=== PATIENT | female | born 1995 | race American Indian/Alaskan Native ===

== ENCOUNTER 2017-01-31 09:44 | Emergency (ER) | payer OTHER ==
[2017-01-31 10:15] VITALS: BP 104/69
[2017-01-31] MEDS ORDERED: ULTRAM PO ONE (11:15)
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
--- NOTE | 2017-01-31 12:28 | XRay Report ---
CERVICAL SPINE, 3 views: History: Neck pain. Findings: The vertebral bodies, disk spaces, posterior elements and prevertebral soft tissues are unremarkable. The dens is intact. No acute fracture or malalignment is identified. Impression: 1. No evidence for acute injury to the cervical spine.
== END 2017-01-31 12:46 | disposition home or self-care (01) ==
LOC: ED 09:44
DX: S16.1XXA Strain of muscle, fascia and tendon at neck level, initial encounter (principal); V89.2XXA Person injured in unspecified motor-vehicle accident, traffic, initial encounter; Y92.488 Other paved roadways as the place of occurrence of the external cause; Y93.89 Activity, other specified; Y99.8 Other external cause status
CPT/HCPCS: 72040; 99283

== ENCOUNTER 2017-08-14 20:44 | Emergency (ER) | payer SELFPAY | END 2017-08-14 22:40 | disposition left against medical advice (07) | LOC: ED 20:44 | DX: G43.909 Migraine, unspecified, not intractable, without status migrainosus (principal); Z53.21 Procedure and treatment not carried out due to patient leaving prior to being seen by health care provider ==

== ENCOUNTER 2017-12-21 18:02 | Emergency (ER) | payer MEDICAID, OTHER ==
[2017-12-21 18:25] VITALS: BP 110/69
== END 2017-12-22 00:50 | disposition left against medical advice (07) ==
LOC: ED 18:02
DX: R51 Headache (principal); R11.10 Vomiting, unspecified; R07.89 Other chest pain; Z53.21 Procedure and treatment not carried out due to patient leaving prior to being seen by health care provider

== ENCOUNTER 2019-01-12 03:18 | Emergency (ER) | payer MEDICAID ==
[2019-01-12] MEDS ORDERED: TYLENOL PO ONE (04:11)
[2019-01-12 04:51] LABS: Bilirubin,Urine NEG (Negative); Blood,Urine NEG (Negative); Color,Urine Yellow (Yellow); HCG Qualitative,Urine Negative (Negative); Mucus,Urine FEW /HPF; Urobilinogen,Urine < 2.0 mg/dL (<2.0)
--- NOTE | 2019-01-12 05:30 | Emergency Department Report ---
ED General Adult HPI - General Chief complaint: Headache Stated complaint: CHEST PAIN Time Seen by Provider: 01/12/19 04:04 Source: patient Mode of arrival: Ambulatory Limitations: No Limitations - History of Present Illness Initial comments: patient presents to er with headache, chest pain, not feeling well. patient states symptoms started 2 days ago. Patient lmp one month ago. no fever, chills or night sweats. Severity scale (0 -10): 10 - Related Data Previous Rx's Medication Instructions Recorded Last Taken Type Cyclobenzaprine [Flexeril] 10 mg PO TID PRN #15 tablet 09/20/16 Unknown Rx Naproxen [Naprosyn] 500 mg PO BID #20 tablet 09/20/16 Unknown Rx Cyclobenzaprine [Flexeril] 10 mg PO TID PRN #30 tablet 01/31/17 Unknown Rx Naproxen [Naprosyn TAB] 500 mg PO BID PRN #60 tablet 01/12/19 Unknown Rx Allergies Allergy/AdvReac Type Severity Reaction Status Date / Time No Known Allergies Allergy Unverified 09/20/16 14:07 ED Review of Systems ROS: Stated complaint: CHEST PAIN Other details as noted in HPI Comment: All other systems reviewed and negative Gastrointestinal: denies: nausea, vomiting Genitourinary: denies: urgency, dysuria Skin: denies: rash Neurological: headache. denies: weakness ED Past Medical Hx - Past Medical History Previous Medical History?: Yes Additional medical history: VAGINAL DLEIVERY X 1 - Surgical History Past Surgical History?: No - Social History Smoking Status: Never Smoker - Medications Home Medications: Home Medications Medication Instructions Recorded Confirmed Last Taken Type Cyclobenzaprine [Flexeril] 10 mg PO TID PRN #15 tablet 09/20/16 Unknown Rx Naproxen [Naprosyn] 500 mg PO BID #20 tablet 09/20/16 Unknown Rx Cyclobenzaprine [Flexeril] 10 mg PO TID PRN #30 tablet 01/31/17 Unknown Rx Naproxen [Naprosyn TAB] 500 mg PO BID PRN #60 tablet 01/12/19 Unknown Rx ED Physical Exam - General Limitations: No Limitations General appearance: alert, in no apparent distress - Head Head exam: Present: atraumatic, normocephalic - Eye Eye exam: Present: normal appearance Pupils: Present: normal accommodation - ENT ENT exam: Present: normal exam, normal orophraynx - Respiratory Respiratory exam: Present: normal lung sounds bilaterally - Cardiovascular Cardiovascular Exam: Present: regular rate, normal rhythm - GI/Abdominal GI/Abdominal exam: Present: soft, normal bowel sounds - Extremities Exam Extremities exam: Present: normal inspection - Back Exam Back exam: Present: normal inspection ED Course Vital Signs 01/12/19 01/12/19 01/12/19 03:27 04:10 04:25 Temperature 97.0 F L 99.9 F H Pulse Rate 111 H 90 Respiratory 22 22 18 Rate Blood Pressure 138/112 Blood Pressure 113/65 [Right] O2 Sat by Pulse 98 95 Oximetry Critical care attestation.: If time is entered above; I have spent that time in minutes in the direct care of this critically ill patient, excluding procedure time. ED Disposition Clinical Impression: Headache Qualifiers: Headache type: tension-type Headache chronicity pattern: acute headache Intractability: not intractable Qualified Code(s): G44.209 - Tension-type headache, unspecified, not intractable Chest pain Qualifiers: Chest pain type: other chest pain Qualified Code(s): R07.89 - Other chest pain; R07.8 - Other chest pain Disposition: -01 TO HOME OR SELFCARE Is pt being admited?: No Does the pt Need Aspirin: No Condition: Stable Instructions: Chest Pain (ED) Prescriptions: Naproxen [Naprosyn TAB] 500 mg PO BID PRN #60 tablet PRN Reason: Pain Referrals: FORD SHORE MD [Primary Care Provider] - 3-5 Days
[2019-01-12 05:46] VITALS: BP 100/62
== END 2019-01-12 05:45 | disposition home or self-care (01) ==
LOC: ED 03:18
DX: G44.209 Tension-type headache, unspecified, not intractable (principal); R07.89 Other chest pain; Z79.899 Other long term (current) drug therapy
CPT/HCPCS: 81001; 81025; 93005; 93010

== ENCOUNTER 2019-01-15 22:48 | Emergency (ER) | payer MEDICAID ==
[2019-01-16] MEDS ORDERED: REGLAN PO ONE (01:09)
[2019-01-16] MEDS ORDERED: AUGMENTIN 875 MG PO ONE (01:09)
[2019-01-16] MEDS ORDERED: TYLENOL PO ONE (01:09)
[2019-01-16] MEDS ORDERED: BENADRYL PO ONE (01:09)
[2019-01-16] MEDS ORDERED: DELTASONE PO ONE (01:09)
--- NOTE | 2019-01-16 01:30 | Emergency Department Report ---
ED Headache HPI - General Chief Complaint: Headache Stated Complaint: FOLLOW UP/HEADACHE X 2WEEKS MEDS NOT WORKING Time Seen by Provider: 01/16/19 01:08 - History of Present Illness Initial Comments: pt is a 23 y/o aaf who presents for persistent headache x 2 weeks pain is 7/10 sharp frontal radiats to right eye and sinus , now with sinus drainage yellow clear, and noc fever there are no visual changes no no sore throat, intermittent dizziness no n/v Allergies/Adverse Reactions: Allergies No Known Allergies Allergy (Unverified 09/20/16 14:07) Home Medications: Ambulatory Orders Cyclobenzaprine [Flexeril] 10 mg PO TID PRN #15 tablet 09/20/16 Naproxen [Naprosyn] 500 mg PO BID #20 tablet 09/20/16 Cyclobenzaprine [Flexeril] 10 mg PO TID PRN #30 tablet 01/31/17 Naproxen [Naprosyn TAB] 500 mg PO BID PRN #60 tablet 01/12/19 Acetaminophen [Acetaminophen TAB] 1,000 mg PO Q6HR PRN #30 tablet 01/16/19 Amoxicillin/K Clav Tab [Augmentin 875 mg] 1 tab PO Q12HR 10 Days #20 tab 01/16/19 Metoclopramide [Reglan] 10 mg PO Q6H PRN #30 tablet 01/16/19 diphenhydrAMINE [Benadryl CAP] 25 mg PO Q6HR PRN #30 capsule 01/16/19 ED Review of Systems ROS: Stated complaint: FOLLOW UP/HEADACHE X 2WEEKS MEDS NOT WORKING Other details as noted in HPI Constitutional: denies: chills, fever Eyes: denies: eye pain, eye discharge, vision change ENT: congestion. denies: ear pain, throat pain Respiratory: denies: cough, shortness of breath, wheezing Cardiovascular: denies: chest pain, palpitations Endocrine: no symptoms reported Gastrointestinal: denies: abdominal pain, nausea, diarrhea Genitourinary: denies: urgency, dysuria, discharge Musculoskeletal: denies: back pain, joint swelling, arthralgia Skin: denies: rash, lesions Neurological: headache. denies: weakness, numbness, paresthesias, confusion, abnormal gait, vertigo Psychiatric: denies: anxiety, depression Hematological/Lymphatic: denies: easy bleeding, easy bruising ED Past Medical Hx - Past Medical History Previous Medical History?: Yes Additional medical history: VAGINAL DLEIVERY X 1 - Surgical History Past Surgical History?: Yes - Social History Smoking Status: Never Smoker Substance Use Type: None - Medications Home Medications: Home Medications Medication Instructions Recorded Confirmed Last Taken Type Cyclobenzaprine [Flexeril] 10 mg PO TID PRN #15 tablet 09/20/16 Unknown Rx Naproxen [Naprosyn] 500 mg PO BID #20 tablet 09/20/16 Unknown Rx Cyclobenzaprine [Flexeril] 10 mg PO TID PRN #30 tablet 01/31/17 Unknown Rx Naproxen [Naprosyn TAB] 500 mg PO BID PRN #60 tablet 01/12/19 Unknown Rx Acetaminophen [Acetaminophen TAB] 1,000 mg PO Q6HR PRN #30 tablet 01/16/19 Unknown Rx Amoxicillin/K Clav Tab [Augmentin 1 tab PO Q12HR 10 Days #20 tab 01/16/19 Unknown Rx 875 mg] Metoclopramide [Reglan] 10 mg PO Q6H PRN #30 tablet 01/16/19 Unknown Rx diphenhydrAMINE [Benadryl CAP] 25 mg PO Q6HR PRN #30 capsule 01/16/19 Unknown Rx ED Physical Exam - General Limitations: No Limitations General appearance: alert, in no apparent distress - Head Head exam: Present: atraumatic, normocephalic, normal inspection - Eye Eye exam: Present: normal appearance, PERRL, EOMI. Absent: conjunctival injec tion, nystagmus, periorbital swelling, periorbital tenderness Pupils: Present: normal accommodation - ENT ENT exam: Present: mucous membranes moist, normal external ear exam. Absent: normal orophraynx - Expanded ENT Exam Expanded Ear exam: Present: normal external inspection, other (bilat maxillary sinus pain to palpation on swelling no erythema ) TM/Canal exam: Erythema: Right TM, Effusion: Right TM, Canal Tenderness: Right TM, Left TM Mouth exam: Absent: trismus Teeth exam: Present: dental caries Throat exam: Positive: normal inspection, other (uvula midline no exudate no lesion no stridor ). Negative: tonsillar erythema, tonsillomegaly, tonsillar exudate, R peritonsillar mass, L peritonsillar mass - Neck Neck exam: Present: normal inspection, full ROM, lymphadenopathy. Absent: tenderness, meningismus, thyromegaly - Expanded Neck Exam Expanded Neck exam: Absent: tenderness, midline deformity, anterior neck swelling, thyroid mass, carotid bruit, tracheal deviation - Respiratory Respiratory exam: Present: normal lung sounds bilaterally, chest wall tenderness. Absent: respiratory distress, wheezes, rhonchi - Cardiovascular Cardiovascular Exam: Present: regular rate, normal rhythm, normal heart sounds. Absent: systolic murmur, diastolic murmur, rubs, gallop - GI/Abdominal GI/Abdominal exam: Present: soft, normal bowel sounds. Absent: distended, tenderness, guarding, rebound, rigid, bruit, hernia - Rectal Rectal exam: Present: deferred - Extremities Exam Extremities exam: Present: normal inspection, full ROM, normal capillary refill. Absent: tenderness - Back Exam Back exam: Present: normal inspection, full ROM. Absent: tenderness, CVA tenderness (R), CVA tenderness (L), muscle spasm, paraspinal tenderness, rash noted - Neurological Exam Neurological exam: Present: alert, oriented X3, CN II-XII intact, normal gait, reflexes normal. Absent: motor sensory deficit - Expanded Neurological Exam Expanded Patient oriented to: Present: person, place, time Speech: Present: fluid speech Cranial nerves: EOM's Intact: Normal, Gag Reflex: Normal, Tongue Deviation: Normal, Nystagmus: Normal, Facial Sensation: Normal Cerebellar function: Finger to Nose: Normal, Heel to Rivera: Normal, Romberg: Normal Upper motor neuron: Sonu Neglect: Normal, Pronator Drift: Normal, Babinski Sign: Normal, Sensory Extinction: Normal Sensory exam: Upper Extremity Light Touch: Normal, Upper Extremity Pin Prick: Normal, Upper Extremity Temperature: Normal, UE 2 Point Discrimination: Normal, Lower Extremity Light Touch: Normal, Lower Extremity Pin Prick: Normal, Lower Extremity Temperature: Normal, LE 2 Point Discrimination: Normal Motor strength exam: RUE: 5, LUE: 5, RLE: 5, LLE: 5 DTR: bicep (R): 2+, bicep (L): 2+, ankle (R): 2+, ankle (L): 2+ Best Eye Response ([place]): (4) open spontaneously Best Motor Response ([place]): (6) obeys commands Best Verbal Response (Jose): (5) oriented [place] Total: 15 - Psychiatric Psychiatric exam: Present: normal affect, normal mood - Skin Skin exam: Present: warm, dry, intact, normal color. Absent: rash ED Course Vital Signs 01/15/19 01/16/19 23:36 01:18 Temperature 97.8 F Pulse Rate 78 Respiratory 18 18 Rate Blood Pressure 122/66 ED Medical Decision Making - Medical Decision Making this is sinusitis with likely sinus headache, headche is improved with medications given in ed , plan augmentin, benadryl, reglan, tylenol, follow up with pcp in 2-3 days return to ed if symptoms worsen. Critical care attestation.: If time is entered above; I have spent that time in minutes in the direct care of this critically ill patient, excluding procedure time. ED Disposition Clinical Impression: Sinus headache Sinusitis Qualifiers: Sinusitis location: frontal Chronicity: acute Recurrence: non-recurrent Qualified Code(s): J01.10 - Acute frontal sinusitis, unspecified Acute headache Qualifiers: Headache type: unspecified Intractability: not intractable Qualified Code(s): R51 - Headache Disposition: DC- TO HOME OR SELFCARE Is pt being admited?: No Does the pt Need Aspirin: No Condition: Stable Instructions: Sinusitis (ED), Acute Headache (ED) Prescriptions: Acetaminophen [Acetaminophen TAB] 1,000 mg PO Q6HR PRN #30 tablet PRN Reason: Headache Amoxicillin/K Clav Tab [Augmentin 875 mg] 1 tab PO Q12HR 10 Days #20 tab diphenhydrAMINE [Benadryl CAP] 25 mg PO Q6HR PRN #30 capsule PRN Reason: Headache Metoclopramide [Reglan] 10 mg PO Q6H PRN #30 tablet PRN Reason: Headache Referrals: DIAMOND GENTILE MD [Staff Physician] - 3-5 Days Forms: Work/School Release Form(ED) Time of Disposition: 01:45
[2019-01-16] MEDS ORDERED: ULTRAM PO ONE (02:00)
[2019-01-16] MEDS ORDERED: ULTRAM ONE (02:00)
[2019-01-16 03:32] VITALS: BP 111/70
== END 2019-01-16 01:53 | disposition home or self-care (01) ==
LOC: ED 22:48
DX: J01.10 Acute frontal sinusitis, unspecified (principal)
CPT/HCPCS: 99282; J7512

== ENCOUNTER 2019-03-27 07:58 | Emergency (ER) | payer MEDICAID ==
[2019-03-27 08:07] VITALS: BP 103/70
--- NOTE | 2019-03-27 08:33 | Emergency Department Report ---
ED Female HPI - General Chief complaint: Vaginal Bleeding Stated complaint: VAGINAL BLEEDING Time Seen by Provider: 03/27/19 08:26 Source: patient Mode of arrival: Ambulatory Limitations: No Limitations - History of Present Illness Initial comments: Patient is 23 years old female 2 para 1, 5 weeks . Patient presented to the ER complaining of vaginal bleeding started this morning associated with pelvic cramping. Patient denied any fever or chills. Patient also denied any nausea or vomiting. MD Complaint: vaginal bleeding, pelvic pain Severity: moderate Quality: cramping Are you Now?: Yes - Related Data Previous Rx's Medication Instructions Recorded Last Taken Type Cyclobenzaprine [Flexeril] 10 mg PO TID PRN #15 tablet 09/20/16 Unknown Rx Naproxen [Naprosyn] 500 mg PO BID #20 tablet 09/20/16 Unknown Rx Cyclobenzaprine [Flexeril] 10 mg PO TID PRN #30 tablet 01/31/17 Unknown Rx Naproxen [Naprosyn TAB] 500 mg PO BID PRN #60 tablet 01/12/19 Unknown Rx Acetaminophen [Acetaminophen TAB] 1,000 mg PO Q6HR PRN #30 tablet 01/16/19 Unknown Rx Amoxicillin/K Clav Tab [Augmentin 1 tab PO Q12HR 10 Days #20 tab 01/16/19 Unknown Rx 875 mg] Metoclopramide [Reglan] 10 mg PO Q6H PRN #30 tablet 01/16/19 Unknown Rx diphenhydrAMINE [Benadryl CAP] 25 mg PO Q6HR PRN #30 capsule 01/16/19 Unknown Rx Allergies Allergy/AdvReac Type Severity Reaction Status Date / Time No Known Allergies Allergy Unverified 09/20/16 14:07 ED Review of Systems ROS: Stated complaint: VAGINAL BLEEDING Other details as noted in HPI Comment: All other systems reviewed and negative Constitutional: denies: chills, fever Respiratory: denies: cough, shortness of breath, SOB with exertion Cardiovascular: denies: chest pain, palpitations Gastrointestinal: denies: abdominal pain, nausea, vomiting Musculoskeletal: denies: back pain Neurological: denies: headache, weakness, numbness, paresthesias, confusion ED Past Medical Hx - Past Medical History Previous Medical History?: No Additional medical history: VAGINAL DLEIVERY X 1 - Surgical History Past Surgical History?: No - Social History Smoking Status: Never Smoker Substance Use Type: None - Medications Home Medications: Home Medications Medication Instructions Recorded Confirmed Last Taken Type Cyclobenzaprine [Flexeril] 10 mg PO TID PRN #15 tablet 09/20/16 Unknown Rx Naproxen [Naprosyn] 500 mg PO BID #20 tablet 09/20/16 Unknown Rx Cyclobenzaprine [Flexeril] 10 mg PO TID PRN #30 tablet 01/31/17 Unknown Rx Naproxen [Naprosyn TAB] 500 mg PO BID PRN #60 tablet 01/12/19 Unknown Rx Acetaminophen [Acetaminophen TAB] 1,000 mg PO Q6HR PRN #30 tablet 01/16/19 Unknown Rx Amoxicillin/K Clav Tab [Augmentin 1 tab PO Q12HR 10 Days #20 tab 01/16/19 Unknown Rx 875 mg] Metoclopramide [Reglan] 10 mg PO Q6H PRN #30 tablet 01/16/19 Unknown Rx diphenhydrAMINE [Benadryl CAP] 25 mg PO Q6HR PRN #30 capsule 01/16/19 Unknown Rx ED Physical Exam - General Limitations: No Limitations General appearance: alert, in no apparent distress - Head Head exam: Present: atraumatic, normocephalic, normal inspection - Eye Eye exam: Present: normal appearance - ENT ENT exam: Present: normal exam, normal orophraynx, mucous membranes moist - Neck Neck exam: Present: normal inspection, full ROM. Absent: tenderness, meningismus, lymphadenopathy, thyromegaly - Respiratory Respiratory exam: Present: normal lung sounds bilaterally - Cardiovascular Cardiovascular Exam: Present: regular rate, normal rhythm, normal heart sounds - GI/Abdominal GI/Abdominal exam: Present: soft, normal bowel sounds. Absent: distended, tenderness, guarding, rebound, rigid, organomegaly, mass, bruit, pulsatile mass, hernia - Extremities Exam Extremities exam: Present: normal inspection, full ROM, normal capillary refill - Back Exam Back exam: Present: normal inspection, full ROM. Absent: CVA tenderness (R), CVA tenderness (L), muscle spasm, paraspinal tenderness, vertebral tenderness - Neurological Exam Neurological exam: Present: alert, oriented X3, CN II-XII intact, normal gait, reflexes normal - Psychiatric Psychiatric exam: Present: normal mood - Skin Skin exam: Present: warm, intact, normal color ED Course Vital Signs 03/27/19 08:06 Temperature 98.2 F Pulse Rate 70 Respiratory 18 Rate Blood Pressure 103/70 [Right] O2 Sat by Pulse 100 Oximetry ED Medical Decision Making - Lab Data Result diagrams: 03/27/19 08:14 - Radiology Data Radiology results: report reviewed Referring Physician: EWA AMADO Patient Name: DEYANIRA MCDONALD Date of : 1995 Sex: Female Report Date: 2019-03-27 Report Status: Finalized Findings [facility] [address] [place] [address] Ultrasound Report Signed Patient: DEYANIRA MCDONALD MR#: [id number] : 1995 Acct:[id number] Age/Sex: 23 / F ADM Date: 03/27/19 Loc: ED Attending Dr: Ordering Physician: EWA AMADO Date of Service: 03/27/19 Procedure(s): US OB transvaginal Accession Number(s): [id number] cc: EWA AMADO ULTRASOUND OB LESS THAN EQUAL TO 14 WEEKS FETUS ULTRASOUND OB TRANSVAGINAL HISTORY: Abdominal pain and vaginal bleeding during for one day COMPARISON: None. TECHNIQUE: Routine transabdominal and transvaginal OB ultrasound performed. FINDINGS: Uterus: Mildly enlarged measuring 10.0 x 4.0 x 5.6 cm. Gestational Sac: Well-defined oval shape and intrauterine in location. Yolk Sac: Normal in appearance. Fetus/Embryo: [place]-rump length of 3.3 cm, corresponding to an estimated gestational age of 6 weeks 0 days. Embryonic/ anatomy is too small for evaluation. Embryonic/ cardiac activity: 118bpm Placenta: Too small for evaluation. Amniotic fluid volume: Subjectively appropriate for gestational age. Ovaries: The right ovary is normal in size and appearance with normal blood flow, measuring 2.7 x 1.6 x 2.9 cm. The left ovary is normal in size and appearance with normal blood flow, measuring 2.3 x 1.0 x 1.6 cm. Additional findings: A small subchorionic bleed is identified measuring up to 4 mm in greatest dimension. IMPRESSION Early live intrauterine . Small subchorionic hemorrhage. Signer Name: Murray Lerner Jr, MD Signed: 03/27/2019 11:19 AM Workstation Name: [id number] Transcribed By: TTR Dictated By: MURRAY LERNER JR, MD Electronically Authenticated By: MURRAY LERNER JR, MD Signed Date/Time: 03/27/19 1119 DD/ 1116 TD/TT: - Medical Decision Making Patient is 23 years old female 2 para 1, 5 weeks . Patient presented to the ER complaining of vaginal bleeding started this morning asso ciated with pelvic cramping. Patient denied any fever or chills. Patient also denied any nausea or vomiting. Labs reviewed and is unremarkable. Ultrasound showed a 6 weeks life intrauterine with some subchorionic hemorrhage. Patient advised to follow-up with her OB doctor in the next 2-3 days and to return to the ER if symptoms are not improved. Critical care attestation.: If time is entered above; I have spent that time in minutes in the direct care of this critically ill patient, excluding procedure time. ED Disposition Clinical Impression: Vaginal bleeding during Disposition: DC-01 TO HOME OR SELFCARE Is pt being admited?: No Condition: Stable Instructions: Abdominal Pain in (ED) Referrals: PRIMARY CARE, [Primary Care Provider] - 3-5 Days
[2019-03-27 08:56] LABS: Basophils % (Auto) 0.7 % (0.0-1.8); Eosinophils # (Auto) 0.1 K/mm3 (0.0-0.4); Eosinophils % (Auto) 1.5 % (0.0-4.3); Hematocrit 37.7 % (30.3-42.9); Hemoglobin 13.2 gm/dl (10.1-14.3); Lymphocytes # (Auto) 1.4 K/mm3 (1.2-5.4); Lymphocytes % (Auto) 31.8 % (13.4-35.0); Mean Corpuscular HGB Conc 35 % (30-34); Mean Corpuscular Volume 92 fl (79-97); Monocytes # (Auto) 0.4 K/mm3 (0.0-0.8); Monocytes % (Auto) 9.6 % (0.0-7.3); Platelet Count 136 K/mm3 (140-440); Red Blood Count 4.09 M/mm3 (3.65-5.03); Red Cell Distribution Width 13.3 % (13.2-15.2)
[2019-03-27 09:12] LABS: Bacteria,Urine 1+ /HPF (Negative)
[2019-03-27 09:15] LABS: Bilirubin,Urine NEG (Negative); Blood,Urine LG (Negative); Color,Urine Straw (Yellow); Protein,Urine <15 mg/dL mg/dL (Negative); Urobilinogen,Urine < 2.0 mg/dL (<2.0)
--- NOTE | 2019-03-27 11:23 | Ultrasound Report ---
ULTRASOUND OB LESS THAN EQUAL TO 14 WEEKS FETUS ULTRASOUND OB TRANSVAGINAL HISTORY: Abdominal pain and vaginal bleeding during for one day COMPARISON: None. TECHNIQUE: Routine transabdominal and transvaginal OB ultrasound performed. FINDINGS: Uterus: Mildly enlarged measuring 10.0 x 4.0 x 5.6 cm. Gestational Sac: Well-defined oval shape and intrauterine in location. Yolk Sac: Normal in appearance. Fetus/Embryo: [place]-rump length of 3.3 cm, corresponding to an estimated gestational age of 6 weeks 0 days. Embryonic/ anatomy is too small for evaluation. Embryonic/ cardiac activity: 118bpm Placenta: Too small for evaluation. Amniotic fluid volume: Subjectively appropriate for gestational age. Ovaries: The right ovary is normal in size and appearance with normal blood flow, measuring 2.7 x 1. 6 x 2.9 cm. The left ovary is normal in size and appearance with normal blood flow, measuring 2.3 x 1.0 x 1.6 cm. Additional findings: A small subchorionic bleed is identified measuring up to 4 mm in greatest dimens ion. IMPRESSION Early live intrauterine . Small subchorionic hemorrhage. Signer Name: Murray Lerner Jr, MD Signed: 03/27/2019 11:19 AM Workstation Name: [id number]
== END 2019-03-27 11:38 | disposition home or self-care (01) ==
LOC: ED 07:58
DX: O26.851 Spotting complicating pregnancy, first trimester (principal); Z3A.01 Less than 8 weeks gestation of pregnancy; Z79.899 Other long term (current) drug therapy
CPT/HCPCS: 36415; 76801; 76817; 81001; 84702; 85025; 86900; 86901; 99284